=== PATIENT | female | born 1965 | race Hispanic/Latino ===

== ENCOUNTER 2019-03-05 15:38 | Emergency (ER) | payer BC ==
--- OUTSIDE RECORDS SUMMARY | 2019-03-05 15:40 | XMS REPORT | Summary of Care ---
Author Author MERRITT ZAIDI N.P. Organization Unknown Address [facility] Phone Unavailable Care Team Providers Care Clinical Law Professor Name Role Phone OFELIA GERBER M.D. Unavailable Unavailable MERRITT ZAIDI N.P. 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 Quantity: 30 OFELIA GERBER M.D. * Start : 29-Apr-2014 Active Trulicity 1.5 MG/0.5ML Subcutaneous Solution Pen-injector * Refills: 0 R.N. Active Losartan Potassium-HCTZ 100-25 MG Oral Tablet * Refills: 0 R.N. Active Nitrofurantoin Monohyd Macro 100 MG Oral Capsule TAKE 1 CAPSULE EVERY 12 HOURS DAILY. * Quantity: 14 Refills: 0 DEJUAN AngelaMERRITT * Start : 22-May-2017 Active MetroNIDAZOLE 0.75 % Vaginal Gel One applicator at bedtime for 7 nights. * Quantity: 1 Refills: 0 BUZZ Wagner OFELIA * Start : 26-May-2017 Active 70 GM Tube Allergies and Adverse Reactions Name Dates Details Jardiance TABS (Allergy) Status: Active Levaquin TABS (Allergy) Status: Active Penicillins (Allergy) Status: Active Past Medical History Name Dates Details History of acute cystitis (V13.02, Z87.440) Status: Resolved History of diabetes mellitus (V12.29, Z86.39) Status: Resolved History of essential hypertension (V12.59, Z86.79) Status: Resolved History of malignant melanoma of skin (V10.82, Z85.820) Status: Resolved History of Urinary symptom or sign (788.99, R39.9) Status: Resolved Procedures Procedure Dates Details History of Knee Surgery Completed History of Tubal Ligation Completed History of Gastric Surgery Completed Immunization Name Dates Details Immunizations not documented Family History Name Dates Details Family history of type 2 diabetes mellitus (V18.0, Z83.3) Status: Active Family history of essential hypertension (V17.49, Z82.49) Status: Active Name Dates Details Family history of type 2 diabetes mellitus (V18.0, Z83.3) Status: Active Family history of alcoholism (V17.0, Z81.1) Status: Active Social History Name Dates Details - Status: Name Dates Details Never smoker Vital Signs Date Test Result Details No Known Vitals to report Results Date Description Value Details [id number] MA Digital Mammo Screening Naeem G0202 Digital Mammo Screening Naeem MA SEE NOTES Comments: BILATERAL DIGITAL SCREENING MAMMOGRAM WITH CAD: 08/18/2017CLINICAL: Encounter For Screening Mammogram For Malignant Neoplasm OfBreast/Z12.31. Current study was evaluated with a Computer Aided Detection (CAD) system. COMPARISON:Comparison is made to exams dated: 05/03/2016 mammogram, 05/02/2015mammogram - [facility], and 05/01/2014 mammogram - [facility]. TECHNIQUE: Mammographic views were obtained using digital acquisition. Currentstudy was also evaluated with a Computer Aided Detection (CAD) system. Thetissue of both breasts is almost entirely fat. FINDINGS:Positioning was limited because of patient factors.There are bilateral benign-appearing calcifications. There are post operative findings in both breasts. No significant masses, calcifications, or other findings are seen in eitherbreast. There has been no significant interval change.IMPRESSION: BENIGNRECOMMENDATION:There is no mammographic evidence of malignancy. A 1 year screening mammogramis recommended.(08/19/2018) This exam was interpreted at [id number] at [facility] [place]. Olu Mack M.D., jp/luanne:08/18/2017 09:14:43 [employer](s): RT [place](R)(M), [facility] sent: BI-RADS 1/2 Mammogram BI-RADS: 2 Benign--Read by: Olu Mackictated Date/time: 08/18/17 09:14Electronically Signed by: Olu Mack MD 08/18/1709:14FINAL REPORT Plan of Care Name Dates Details Planned Observations Planned Goals not documented Instructions Name Dates Details Instructions not documented Encounters Appointment; OFELIA GERBER M.D. Encounter Diagnosis: Problem not documented On: 10-May-2016 10:20 Appointment; OFELIA GERBER M.D. Encounter Diagnosis: Problem not documented On: 17-May-2016 14:50 Appointment; OFELIA GERBER M.D. Encounter Diagnosis: Problem not documented On: 28-Jun-2016 13:50 Appointment; OFELIA GERBER M.D. Encounter Diagnosis: Problem not documented On: 07-Sep-2016 9:10 Appointment; OFELIA GERBER M.D. Encounter Diagnosis: Problem not documented On: 08-Mar-2017 12:20 Appointment; OFELIA GERBER M.D. Encounter Diagnosis: Problem not documented On: 18-May-2017 14:30
[2019-03-05] MEDS ORDERED: KETOROLAC TROMETHAMINE 30 MG/ML VIAL IV STA (16:24)
[2019-03-05] MEDS ORDERED: METOCLOPRAMIDE HCL 10 MG/2ML VIAL IV ONE (16:30)
[2019-03-05] MEDS ORDERED: ACETAMINOPHEN 325 MG TAB PO ONE (16:30)
[2019-03-05] MEDS ORDERED: SODIUM CHLORIDE 0.9% 500ML 500 ML IV ONE (16:30)
[2019-03-05 16:49] LABS: BASOPHILS % 0.4 % (0.0-1.0); EOSINOPHILS # (AUTO) 0.1 (0.0-0.4); EOSINOPHILS % 1.3 % (0.0-6.0); HEMATOCRIT 45.1 % (34.2-44.1); HEMOGLOBIN 14.8 g/dL (12.0-16.0); LYMPHOCYTES # (AUTO) 2.3 (1.0-3.2); LYMPHOCYTES % 29.4 % (18.0-39.1); MEAN CORPUSCULAR HEMOGLOBIN 27.3 pg (28-32); MEAN CORPUSCULAR HGB CONC 32.8 g/dL (31-35); MEAN CORPUSCULAR VOLUME 83.1 fL (81-99); MONOCYTES # (AUTO) 0.7 (0.2-0.8); NEUTROPHILS # (AUTO) 4.7 (2.1-6.9); NEUTROPHILS % 59.6 % (38.7-80.0); PLATELET COUNT 227 x10e3/uL (140-360); RED BLOOD COUNT 5.43 x10e6/uL (3.6-5.1); RED CELL DISTRIBUTION WIDTH 13.2 % (11.7-14.4)
[2019-03-05 16:49] LABS: BILIRUBIN,URINE NEGATIVE (NEGATIVE); CLARITY,URINE SL CLOUDY (CLEAR); COLOR,URINE YELLOW (YELLOW); KETONES,URINE NEGATIVE (NEGATIVE); LEUKOCYTE ESTERASE ,URINE NEGATIVE (NEGATIVE); NITRITE,URINE NEGATIVE (NEGATIVE); PROTEIN,URINE DIPSTICK 1+ (NEGATIVE); URINE UROBILINOGEN 0.2 mg/dL (0.2 - 1)
[2019-03-05 17:04] LABS: ALANINE AMINOTRANSFERASE 53 IU/L (0-55); ALBUMIN 3.7 g/dL (3.5-5.0); ALBUMIN/GLOBULIN RATIO 0.9 (0.8-2.0); ALKALINE PHOSPHATASE 91 IU/L (40-150); ANION GAP 12.7 mmol/L (8-16); BLOOD UREA NITROGEN 13 mg/dL (7-26); BUN/CREATININE RATIO 15 (6-25); CALCIUM 9.8 mg/dL (8.4-10.2); CARBON DIOXIDE 28 mmol/L (22-29); CHLORIDE 100 mmol/L (98-107); CREATINE KINASE 140 IU/L (29-168); CREATININE, SERUM 0.87 mg/dL (0.57-1.11); EST GLOMERULAR FILTRATION RATE > 60 ML/MIN (60-); GLUCOSE 200 mg/dL (74-118); MAGNESIUM 2.1 MG/DL (1.3-2.1); POTASSIUM 3.7 mmol/L (3.5-5.1); SODIUM 137 mmol/L (136-145)
[2019-03-05 17:06] LABS: BACTERIA,URINE FEW /HPF; EPITHELIAL CELLS,URINE MANY /LPF
[2019-03-05 17:51] VITALS: BP 133/75
== END 2019-03-05 17:56 | disposition home or self-care (01) ==
LOC: ER 15:38
DX: G44.89 Other headache syndrome (principal); I10 Essential (primary) hypertension; E78.5 Hyperlipidemia, unspecified; M19.90 Unspecified osteoarthritis, unspecified site; G47.30 Sleep apnea, unspecified; Z98.84 Bariatric surgery status
CPT/HCPCS: 36415; 80053; 81001; 82550; 82553; 83735; 84484; 85025; 93005; 99283; J1885; J2765; J7040

== ENCOUNTER → 2020-06-23 | Day surgery (SDC) | payer BC, OTHER ==
[2020-06-19 10:10] LABS: BASOPHILS % 0.3 % (0.0-1.0); EOSINOPHILS # (AUTO) 0.1 (0.0-0.4); EOSINOPHILS % 1.2 % (0.0-6.0); HEMATOCRIT 45.7 % (34.2-44.1); HEMOGLOBIN 14.5 g/dL (12.0-16.0); LYMPHOCYTES % 33.6 % (18.0-39.1); MEAN CORPUSCULAR HEMOGLOBIN 28.7 pg (28-32); MEAN CORPUSCULAR HGB CONC 31.7 g/dL (31-35); MEAN CORPUSCULAR VOLUME 90.5 fL (81-99); MONOCYTES # (AUTO) 0.5 (0.2-0.8); MONOCYTES % 8.2 % (4.4-11.3); NEUTROPHILS # (AUTO) 3.4 (2.1-6.9); NEUTROPHILS % 56.5 % (38.7-80.0); PLATELET COUNT 191 x10e3/uL (140-360); RED BLOOD COUNT 5.05 x10e6/uL (3.6-5.1); RED CELL DISTRIBUTION WIDTH 13.1 % (11.7-14.4)
[2020-06-19 10:28] LABS: INR 0.94; PROTHROMBIN TIME 13.1 seconds (11.9-14.5)
[2020-06-19 10:29] LABS: ALANINE AMINOTRANSFERASE 52 IU/L (0-55); ALBUMIN 4.2 g/dL (3.5-5.0); ALBUMIN/GLOBULIN RATIO 1.2 (0.8-2.0); ALKALINE PHOSPHATASE 73 IU/L (40-150); ANION GAP 18.8 mmol/L (8-16); BLOOD UREA NITROGEN 13 mg/dL (7-26); BUN/CREATININE RATIO 18 (6-25); CALCIUM 8.8 mg/dL (8.4-10.2); CARBON DIOXIDE 20 mmol/L (22-29); CHLORIDE 107 mmol/L (98-107); CREATININE, SERUM 0.71 mg/dL (0.57-1.11); EST GLOMERULAR FILTRATION RATE > 60 ML/MIN (60-); GLUCOSE 114 mg/dL (74-118); PARTIAL THROMBOPLASTIN TIME 27.5 seconds (23.8-35.5); POTASSIUM 3.8 mmol/L (3.5-5.1); SODIUM 142 mmol/L (136-145)
[~2020-06-23] MED LIST: CYMBALTA30 MG PO; FENTANYL CITRATE/PF 100MCG/2 ML INJ ONE; LINZESS145 MCG PO; METFORMIN HCL500 M2 PO; MIDAZOLAM HCL 2 MG/2 ML VIAL ONE; MYRBETRIQ25 MG PO; NALFON400 MG PO; OLMESARTAN-HCT1 EAC1 PO; PIOGLITAZONE HC15 MG PO; PROPOFOL IV EMULSION 10 MG/ML 20 ML VIAL ONE; TRULICITY1.5 MG/0.5 SC
[2020-06-23 12:30] VITALS: BP 142/78
== END | disposition home or self-care (01) ==
LOC: OR 09:14
PROVIDERS: ATTEND Internal Medicine Gastroenterology
DX: K92.1 Melena (principal); D12.3 Benign neoplasm of transverse colon; K59.09 Other constipation; K64.8 Other hemorrhoids; G47.33 Obstructive sleep apnea (adult) (pediatric); I10 Essential (primary) hypertension; E11.9 Type 2 diabetes mellitus without complications; E66.01 Morbid (severe) obesity due to excess calories; Z88.1 Allergy status to other antibiotic agents; Z88.0 Allergy status to penicillin; Z01.810 Encounter for preprocedural cardiovascular examination; Z01.812 Encounter for preprocedural laboratory examination; Z11.59 Encounter for screening for other viral diseases; Z79.84 Long term (current) use of oral hypoglycemic drugs; Z98.84 Bariatric surgery status; Z68.43 Body mass index [BMI] 50.0-59.9, adult; Z85.820 Personal history of malignant melanoma of skin
CPT/HCPCS: 36415 ×2; 45384; 80053; 82948; 85025; 85610; 85730; 93005; J2250; J2704; J3010; U0002

== ENCOUNTER 2021-06-28 23:25 | Emergency (ER) | payer BC ==
[~2021-06-28] VITALS: Ht 152.4 cm; Wt 136.1 kg
[~2021-06-28 23:25] MED LIST changes: -FENTANYL CITRATE/PF 100MCG/2 ML INJ ONE; -MIDAZOLAM HCL 2 MG/2 ML VIAL ONE; -PROPOFOL IV EMULSION 10 MG/ML 20 ML VIAL ONE
[2021-06-29 00:16] LABS: BASOPHILS % 0.5 % (0.0-1.0); EOSINOPHILS # (AUTO) 0.1 (0.0-0.4); EOSINOPHILS % 1.7 % (0.0-6.0); HEMATOCRIT 42.5 % (34.2-44.1); LYMPHOCYTES % 31.8 % (18.0-39.1); MEAN CORPUSCULAR HEMOGLOBIN 29.4 pg (28-32); MEAN CORPUSCULAR HGB CONC 32.9 g/dL (31-35); MEAN CORPUSCULAR VOLUME 89.1 fL (81-99); MONOCYTES # (AUTO) 0.7 (0.2-0.8); MONOCYTES % 11.6 % (4.4-11.3); NEUTROPHILS # (AUTO) 3.4 (2.1-6.9); NEUTROPHILS % 54.1 % (38.7-80.0); PLATELET COUNT 188 x10e3/uL (140-360); RED BLOOD COUNT 4.77 x10e6/uL (3.6-5.1)
[2021-06-29 00:34] LABS: ANION GAP 14.4 mmol/L (8-16); BLOOD UREA NITROGEN 11 mg/dL (7-26); BUN/CREATININE RATIO 15 (6-25); CARBON DIOXIDE 26 mmol/L (22-29); CHLORIDE 102 mmol/L (98-107); CREATINE KINASE 148 IU/L (29-168); CREATININE, SERUM 0.72 mg/dL (0.57-1.11); EST GLOMERULAR FILTRATION RATE 84 ML/MIN (60-); GLUCOSE 125 mg/dL (74-118); POTASSIUM 3.4 mmol/L (3.5-5.1); SODIUM 139 mmol/L (136-145)
[2021-06-29] MEDS ORDERED: SODIUM CHLORIDE 0.9% 100 ML ONE (01:11)
[2021-06-29] MEDS ORDERED: IOPAMIDOL 370 MG/ML 200 ML INFUS..BTL INJ ONE (01:11)
[2021-06-29] MEDS ORDERED: ONDANSETRON HCL INJ 2MG/ML 2ML 2 MG/ML VIAL ONE (01:35)
[2021-06-29] MEDS ORDERED: KETOROLAC TROMETHAMINE 30 MG/ML VIAL IV STA (02:45)
[2021-06-29] MEDS ORDERED: ACETAMIN/BUTALBITAL/CAFFEINE TAB PO ONE (02:45)
[2021-06-29] MEDS ORDERED: KETOROLAC TROMETHAMINE 30 MG/ML VIAL ONE (02:58)
[2021-06-29] MEDS ORDERED: ACETAMIN/BUTALBITAL/CAFFEINE TAB ONE (02:58)
[2021-06-29 04:40] VITALS: BP 166/71
== END 2021-06-29 03:00 | disposition home or self-care (01) ==
LOC: ER 23:47
DX: R51.9 Headache, unspecified (principal); R11.2 Nausea with vomiting, unspecified; E11.65 Type 2 diabetes mellitus with hyperglycemia; I10 Essential (primary) hypertension; E78.5 Hyperlipidemia, unspecified; G47.30 Sleep apnea, unspecified
CPT/HCPCS: 36415; 70496; 80048; 82550; 82553; 84484; 85025; 99284; J1885; J2405; J7050; Q9967